=== PATIENT | male | born 1985 | race Caucasian/White ===

== ENCOUNTER 2021-12-13 18:37 | Emergency (ER) | payer SELFPAY ==
[2021-12-13 18:39] VITALS: BP 148/100; PULSE 96; RESP 18; TEMP 36.9; O2SAT 97; BMI 39.5
--- NOTE | 2021-12-13 18:50 | HMH.EDGENADL ---
ED Disposition Clinical Impression: Leg swelling Hematuria Qualifiers: Hematuria type: unspecified type Qualified Code(s): R31.9 - Hematuria, unspecified Disposition: Still a Patient Condition on Discharge: Fair Referrals: Provider,Referral, [Primary Care Provider] - - Critical Care Critical Care Time: No Attestation: On , the high probability of a clinically significant, sudden or life threatening deterioration of the following system(s) required my full and direct attention, intervention and personal management. The time I documented below is in addition to time spent performing reported procedures but includes the following listed in this critical care notation. Medical Decision Making - Medical Records Medical records reviewed: Yes: I reviewed the patient's medical records. - Narciso Inquiry Pt receiving controlled substance: No Vital Signs: 12/13/21 18:39 Temperature 98.5 F Temperature Source Oral Pulse Rate [Right] 96 H Respiratory Rate 18 Blood Pressure [Right Arm] 148/100 H Blood Pressure Mean [Right Arm] 116 Blood Pressure Source [Right Arm] Automatic Cuff 02 Sat by Pulse Oximetry 97 Oxygen Delivery Method Room Air - Lab Data Lab Results 12/13/21 19:16: WBC 9.1, RBC 4.53 L, Hgb 14.4, Hct 42.8, MCV 94.5 H, MCH 31.7 H, MCHC 33.6, RDW 13.1, Plt Count 314, MPV 8.2, Neut % (Auto) 49.2, Lymph % (Auto) 37.3, [place] % (Auto) 5.4, Eos % (Auto) 6.5, Baso % (Auto) 1.5, Neut # (Auto) 4.5, Lymph # (Auto) 3.4, [place] # (Auto) 0.5, Eos # (Auto) 0.6 H, Baso # (Auto) 0.1 12/13/21 19:16: D-Dimer 0.51 H 12/13/21 19:16: Sodium 140, Potassium 4.1, Chloride 108 H, Carbon Dioxide 26, Anion Gap 10.1, BUN 11, Creatinine 1.00, Estimated Creat Clear 195, Estimated GFR 84, Est GFR ( Amer) 102, Glucose 130 H, Calcium 8.9, Total Bilirubin 0.2, AST 61 H, ALT 81 H, Alkaline Phosphatase 105, Total Creatine Kinase 169, Troponin I < 0.01, NT-Pro-B Natriuret Pep 46.0, Total Protein 6.9, Albumin 3.8, Globulin 3.1, Albumin/Globulin Ratio 1.2 12/13/21 19:20: Urine Color Yellow, Urine Appearance Clear, Urine pH 5.5, Ur Specific [place] >= 1.030, Urine Protein 1+, Urine Glucose (UA) Negative, Urine Ketones Negative, Urine Blood 3+, Urine Nitrate Negative, Urine Bilirubin Negative, Urine Urobilinogen 1.0, Ur Leukocyte Esterase Negative, Urine RBC 20-50, Urine WBC Occasional, Ur Squamous Epith Cells 3-5, Urine Bacteria Trace Result diagrams: 12/13/21 19:16 12/13/21 19:16 Orders (Tests/Meds): ORDERS Category Date Time Status CT abdomen pelvis wo/w con Stat Cat Scan 12/13/21 20:18 Ordered Medical Decision Narrative: In review this is a 36-year-old male who presents with lower extremity swelling. Hemodynamically stable and nontoxic-appearing. Patient does have bilateral leg swelling in the lower extremities. Do not have ability to get ultrasound rapidly here tonight so we will get a D-dimer to evaluate for possible DVT. Additionally with his dark urine and swelling this could be a renal issue so we will check his urine as well as a CK. His laboratory studies were pertinent for an elevation in his D-dimer at 0.51. And his urine showed 3+ blood as well as 1+ protein. I reassessed the patient again and he says maybe he does have a little bit of bilateral CVA tenderness. He does note as well that he had 1 episode of painful urination yesterday. Due to this we will get a CT with and without contrast to evaluate for any intra-abdominal pathology. We will also need a dose of Lovenox and an ultrasound tomorrow when the techs are back. At this point (patient's care was transitioning to the oncoming provider pending CT scan and final disposition. General Adult HPI - General Stated complaint: swollen ankles, dark urine, back pain Time Seen by Provider: 12/13/21 18:45 - History of Present Illness HPI narrative: Patient is a 36-year-old male who presents with a complaint of bilateral lower extremity swelling. He says that
[2021-12-13 19:09] VITALS: BMI 39.5
[2021-12-13 19:22] LABS: Basophils # 0.1 K/mm3 (0-0.2); Basophils % 1.5 % (0.1-2.0); Eosinophils # 0.6 K/mm3 (0.0-0.4); Eosinophils % 6.5 % (0.1-12.0); Hematocrit 42.8 % (42.0-52.0); Hemoglobin 14.4 g/dL (14.1-18.0); Lymphocytes # 3.4 K/mm3 (0.7-4.5); Lymphocytes % 37.3 % (10-50); Mean Corpuscular HGB Conc 33.6 g/dL (31.8-35.4); Mean Corpuscular Hemoglobin 31.7 pg (27.0-31.2); Mean Corpuscular Volume 94.5 fl (80-94); Mean Platelet Volume 8.2 fl (7.4-10.4); Monocytes # 0.5 K/mm3 (0.1-1.0); Monocytes % 5.4 % (1.7-9.3); Neutrophils # 4.5 K/mm3 (1.8-7.8); Neutrophils % 49.2 % (37.0-80.0); Platelet Count 314 K/mm3 (142-424); Red Blood Count 4.53 M/mm3 (4.60-6.20); Red Cell Distribution Width 13.1 % (11.5-17.5); White Blood Count 9.1 K/mm3 (4.8-10.8)
[2021-12-13 19:28] LABS: Microscopic, Urine URINE MICROSCOPIC (MICROSCOPIC)
[2021-12-13 19:38] LABS: Alanine Aminotransferase 81 U/L (12-78); Albumin Level 3.8 g/dl (3.5-5.0); Albumin/Globulin Ratio 1.2 (1.1-1.8); Alkaline Phosphatase 105 U/L (38-126); Anion Gap 10.1 mEq/L (5-15); Aspartate Amino Transferase 61 U/L (17-59); Bilirubin,Total 0.2 mg/dl (0.2-1.3); Blood Urea Nitrogen 11 mg/dl (9-20); Calcium 8.9 mg/dl (8.4-10.2); Carbon Dioxide 26 mmol/L (22.0-30.0); Chloride 108 mmol/L (98-107); Creatine Kinase 169 U/L (55-170); Creatinine Clearance Estimated 195 mL/min (50-200); Estimated Glomerular Filt Rate 84 ml/min (>60); GFR (African American) 102 ML/MIN (>60); Globulin 3.1 g/dL (1.3-3.2); Glucose 130 mg/dl (74-100); Potassium 4.1 mmoL/L (3.5-5.1); Sodium 140 mmol/L (136-145); Total Protein,Serum 6.9 g/dl (6.3-8.2)
[2021-12-13 19:44] LABS: D-Dimer 0.51 ug/mL (0.0-0.5)
[2021-12-13 19:55] LABS: Appearance,Urine CLEAR (Clear); Bilirubin,Urine Negative (Negative); Blood, Urine 3+ (Negative); Color,Urine YELLOW (Yellow); Glucose,Urine (UA) Negative (Negative); Ketones,Urine Negative (Negative); Leukocyte Esterase,Urine Negative (Negative); Nitrate,Urine Negative (Negative); PH,Urine 5.5 (5.0-8.5); Protein,Urine 1+ (Negative); Specific Gravity, Urine >= 1.030 (1.005-1.030)
[2021-12-13 19:57] LABS: Troponin I < 0.01 ng/ml (0.00-0.034)
[2021-12-13 20:15] LABS: Bacteria,Urine Trace /lpf; RBC,Urine 20-50 #/hpf (0-3); WBC,Urine Occasional #/hpf (0-3)
--- NOTE | 2021-12-13 20:18 | CT_ITS ---
PROCEDURE INFORMATION: Exam: CT Abdomen And Pelvis Without And With Contrast; Kidneys Exam date and time: 12/13/2021 8:24 PM Age: 36 years old Clinical indication: Other: Hematuria; Additional info: Hematuria, back pain, concern for renal vein throm TECHNIQUE: Imaging protocol: Computed tomography of the abdomen and pelvis without and with intravenous contrast. Exam focused on the kidneys. Radiation optimization: All CT scans at this facility use at least one of these dose optimization techniques: automated exposure control; mA and/or kV adjustment per patient size (includes targeted exams where dose is matched to clinical indication); or iterative reconstruction. Contrast material: ISOVUE; Contrast volume: 75 ml; Contrast route: INTRA-ARTERIAL (ARTERIAL); COMPARISON: No relevant prior studies available. FINDINGS: Liver: Hepatic steatosis. Gallbladder and bile ducts: Normal. No calcified stones. No ductal dilation. Pancreas: Normal. No ductal dilation. Spleen: Normal. No splenomegaly. Adrenals: Normal. No mass. Kidneys and ureters: Normal. No hydronephrosis. No masses. Stomach and bowel: Colonic diverticulosis. No evidence of diverticulitis. Intraperitoneal space: Unremarkable. No free air. No significant fluid collection. Lymph nodes: Unremarkable. No enlarged lymph nodes. Vasculature: Unremarkable. No abdominal aortic aneurysm. Bladder: Unremarkable. Reproductive: Unremarkable. Bones/joints: advanced changes of disc degeneration at L4-L5. Soft tissues: Unremarkable. Other findings: Please see above report for discussion of nonacute findings. IMPRESSION: No evidence of acute abnormality.
[2021-12-13 21:17] VITALS: BP 150/98; PULSE 90; RESP 18; TEMP 36.9; O2SAT 99
== END 2021-12-13 21:25 | disposition home or self-care (01) ==
PROVIDERS: Emergency Provider Student in an Organized Health Care Education/Training Program
DX: R31.9 Hematuria, unspecified (principal); M79.89 Other specified soft tissue disorders; R82.998 Other abnormal findings in urine; M54.50 Low back pain, unspecified; G89.29 Other chronic pain; Z88.2 Allergy status to sulfonamides
CPT/HCPCS: 74178; 80053; 81001; 82550; 83880; 84484; 85025; 85378; 96372; 99285; Q9967

== ENCOUNTER 2022-01-04 00:43 | Emergency (ER) | payer SELFPAY ==
[2022-01-04] VITALS (7 sets, daily range): BP systolic 103–144; BP diastolic 70–87; PULSE 78–125; RESP 17–18; TEMP 37.2–38; O2SAT 95–98; BMI 40.6
--- NOTE | 2022-01-04 00:55 | XR_ITS ---
PROCEDURE INFORMATION: Exam: XR Chest Exam date and time: 01/04/2022 1:08 AM Age: 36 years old Clinical indication: Cough and fever; Patient HX: PT states fever, dry cough; Additional info: Chest pain TECHNIQUE: Imaging protocol: Radiologic exam of the chest. Views: 2 views. COMPARISON: CT ABDOMEN PELVIS WO/W CON 12/13/2021 8:24 PM FINDINGS: Lungs: Unremarkable. No consolidation. Pleural spaces: Unremarkable. No pleural effusion. No pneumothorax. Heart/Mediastinum: Unremarkable. No cardiomegaly. Bones/joints: Unremarkable. IMPRESSION: No acute findings.
[2022-01-04 01:23] LABS: Basophils # 0.1 K/mm3 (0-0.2); Basophils % 0.9 % (0.1-2.0); Eosinophils # 0.4 K/mm3 (0.0-0.4); Eosinophils % 4.6 % (0.1-12.0); Hematocrit 44.7 % (42.0-52.0); Hemoglobin 14.6 g/dL (14.1-18.0); Lymphocytes # 0.6 K/mm3 (0.7-4.5); Lymphocytes % 7.7 % (10-50); Mean Corpuscular HGB Conc 32.8 g/dL (31.8-35.4); Mean Corpuscular Hemoglobin 30.9 pg (27.0-31.2); Mean Corpuscular Volume 94.2 fl (80-94); Monocytes # 0.6 K/mm3 (0.1-1.0); Monocytes % 7.9 % (1.7-9.3); Neutrophils # 6.1 K/mm3 (1.8-7.8); Neutrophils % 78.8 % (37.0-80.0); Platelet Count 319 K/mm3 (142-424); Red Blood Count 4.74 M/mm3 (4.60-6.20); Red Cell Distribution Width 13.3 % (11.5-17.5); White Blood Count 7.8 K/mm3 (4.8-10.8)
[2022-01-04 01:24] LABS: Influenza A, PCR Not Detected (NotDetected); Influenza B, PCR Not Detected (NotDetected)
[2022-01-04 01:25] LABS: Chloride 105 mmol/L (98-107); Sodium 139 mmol/L (136-145)
[2022-01-04 01:26] LABS: Microscopic, Urine URINE MICROSCOPIC (MICROSCOPIC)
[2022-01-04 01:27] LABS: Blood Urea Nitrogen 9 mg/dl (9-20); Creatinine Clearance Estimated 200 mL/min (50-200); Estimated Glomerular Filt Rate 84 ml/min (>60); GFR (African American) 102 ML/MIN (>60)
[2022-01-04 01:28] LABS: Alanine Aminotransferase 102 U/L (12-78); Albumin Level 4.3 g/dl (3.5-5.0); Albumin/Globulin Ratio 1.3 (1.1-1.8); Alkaline Phosphatase 94 U/L (38-126); Aspartate Amino Transferase 102 U/L (17-59); Calcium 8.3 mg/dl (8.4-10.2); Carbon Dioxide 23 mmol/L (22.0-30.0); Globulin 3.3 g/dL (1.3-3.2); Glucose 123 mg/dl (74-100); Total Protein,Serum 7.6 g/dl (6.3-8.2)
[2022-01-04 01:30] LABS: Bilirubin,Total 0.1 mg/dl (0.2-1.3)
[2022-01-04 01:33] LABS: Appearance,Urine CLEAR (Clear); Bilirubin,Urine Negative (Negative); Blood, Urine 3+ (Negative); Color,Urine DK YELLOW (Yellow); Glucose,Urine (UA) Negative (Negative); Ketones,Urine Negative (Negative); Leukocyte Esterase,Urine Negative (Negative); Nitrate,Urine Negative (Negative); Protein,Urine 2+ (Negative); Specific Gravity, Urine >= 1.030 (1.005-1.030)
[2022-01-04 01:33] LABS: C-Reactive Protein 10.8 mg/L (0-4)
--- NOTE | 2022-01-04 01:39 | HMH.EDGENADL ---
Discharge Plan Disposition Chief Complaint: PAIN Prescriptions Prescriptions: No Action No Known Home Medications Referrals Follow up/Referrals: Provider,Referral, MD [Primary Care Provider] - See instructions Clinical Impressions Clinical Impression: COVID-19 Instructions Patient Instructions: DI for COVID-19 (Suspected or Confirmed ) Discharge ED Provider: Jarett Flores General Adult HPI General Chief complaint: PAIN Stated complaint: fever 102, lower back pain, muscle weakness Time Seen by Provider: 01/04/22 01:39 Mode of Arrival: Ambulatory Source of Information: Patient and Medical Record Limitations: No Limitations Description of Symptoms (Recalled from ER Triage Doc. by RN): FEVER, LOW BACK PAIN, JOINT PAIN, PAIN WITH INSPIRATION, COUGH, HEADACHE History of Present Illness HPI narrative: fever and achey with jt pain with cough but no rash Onset (ago): day(s) Location: back Severity: moderate Quality: aching Consistency: intermittent Associated symptoms: fever/chills; negative rash Related Data Home Medications Medication Instructions Recorded Confirmed No Known Home Medications 12/13/21 01/04/22 Allergies Allergy/AdvReac Type Severity Reaction Status Date / Time Sulfa (Sulfonamide Allergy Verified 12/13/21 19:09 Antibiotics) PFSH PFS Social History Smoking Status: Never smoker alcohol intake: never current occupational status: employed Travel in the last 8 weeks: None ROS Obtained: Yes All systems reviewed & no additional complaints except as documented Constitutional Constitutional: Reports fever(s) Physical Exam General General appearance: alert and obese Head Head exam: normocephalic Eye Eye exam: Present PERRL and EOMI; Absent scleral icterus ENT ENT exam: Present normal oropharynx and mucous membranes moist Neck Neck exam: Present full ROM and trachea midline Respiratory Respiratory exam: Present normal lung sounds bilaterally; Absent respiratory distress Cardiovascular Cardiovascular exam: Present regular rate; Absent rubs Abdominal Exam Abdominal exam: Present soft; Absent tenderness Extremities Exam Extremities exam: Absent tenderness or calf tenderness Back Exam Back exam: Absent CVA tenderness (R) or CVA tenderness (L) Neurological Exam Neurological exam: Present alert, oriented X3 and CN II-XII intact; Absent motor sensory deficit Psychiatric Psychiatric exam: Present normal affect Skin Skin exam: Absent rash Medical Decision Making Medical Records Medical records reviewed: Yes I reviewed the patient's medical records. Narciso Inquiry Pt receiving controlled substance: No Vital Signs: 01/04/22 00:51 01/04/22 01:28 01/04/22 01:30 Temperature 100.4 F H Temperature Source Oral Pulse Rate 125 H 120 H Pulse Rate [Left Radial] 96 H Respiratory Rate 18 Blood Pressure 126/80 142/79 H Blood Pressure [Right Arm] 136/84 Blood Pressure Mean 105 Blood Pressure Mean [Right Arm] 101 Blood Pressure Source [Right Arm] Automatic Cuff Blood Pressure Position [Right Arm] Sitting 02 Sat by Pulse Oximetry 98 95 95 Oxygen Delivery Method Room Air Room Air 01/04/22 02:00 Temperature 99.4 F Temperature Source Oral Pulse Rate 111 H Pulse Rate [Left Radial] Respiratory Rate Blood Pressure 103/70 L Blood Pressure [Right Arm] Blood Pressure Mean 84 Blood Pressure Mean [Right Arm] Blood Pressure Source [Right Arm] Blood Pressure Position [Right Arm] 02 Sat by Pulse Oximetry 95 Oxygen Delivery Method Lab Data Lab results reviewed: Yes I reviewed the patient's lab results. Lab Results 01/04/22 01:00: WBC 7.8, RBC 4.74, Hgb 14.6, Hct 44.7, MCV 94.2 H, MCH 30.9, MCHC 32.8, RDW 13.3, Plt Count 319, MPV 8.0, Neut % (Auto) 78.8, Lymph % (Auto) 7.7 L, [place] % (Auto) 7.9, Eos % (Auto) 4.6, Baso % (Auto) 0.9, Neut # (Auto) 6.1, Lymph # (Auto) 0.6 L, [place] # (Auto) 0.6, Eos # (Auto) 0.4, Baso # (Auto) 0.1,
[2022-01-04 01:50] LABS: Coronavirus 19, PCR Detected (NotDetected); Erythrocyte Sedimentation Rate 21 mm/hr (0-15)
[2022-01-04 02:05] LABS: Procalcitonin 0.213 ng/mL (0.0-2.0)
[2022-01-04 02:09] LABS: Bacteria,Urine 1+ /lpf
--- NOTE | 2022-01-04 02:17 | PC.NURSE ---
PT REPORTS THAT PAIN HAS RESOLVED. PT UPDATED WITH EXPECTED WAIT TIMES. FAMILY REMAINS AT BEDSIDE. WCM.
[2022-01-08 22:13] LABS: RMSF, IgG, EIA Negative (Negative)
[2022-01-09 01:07] LABS: Rocky Mtn Spotted Fever, IgM 0.35 index (0.00-0.89)
[2022-01-11 09:22] LABS: CSF Lyme (B. burgdorferi) PCR Negative (Negative)
== END 2022-01-04 03:17 | disposition home or self-care (01) ==
PROVIDERS: Emergency Provider Emergency Medicine
DX: U07.1 COVID-19 (principal)
CPT/HCPCS: 71046; 80053; 81001; 84145; 85025; 85651; 86140; 86609; 87476; 96365; 96375; 99284; C9803; U0003; U0005